=== PATIENT | female | born 2000 | race Caucasian/White ===

== ENCOUNTER 2018-05-05 14:06 | Emergency (ER) | payer MEDICAID ==
--- NOTE | 2018-05-05 15:21 | EDM.PDOC ---
ED HPI GENERAL MEDICAL PROBLEM - General Chief Complaint: General Stated Complaint: NEXPLANON IMPLANT HAS MOVED Time Seen by Provider: 05/05/18 15:10 Source of Information: Reports: Patient History Limitations: Reports: No Limitations - History of Present Illness INITIAL COMMENTS - FREE TEXT/NARRATIVE: 17 yo female has had a Nexplanon in her L arm for about a year placed by a facility in [place] where she used to live. They apparently told her that if it moves at all it needs to be taken out right away. She thinks it has moved distally about an inch or so. This is otherwise not associated with any sx's that she is experiencing. Comes here today hoping we will remove it. 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: Reports: Other (see below) (none) - Related Data Allergies Allergy/AdvReac Type Severity Reaction Status Date / Time No Known Allergies Allergy Verified 05/05/18 14:24 Home Meds: Home Meds NK [No Known Home Meds] 05/05/18 [History] Past Medical History - Past Surgical History Head Surgeries/Procedures: Reports: None Social & Family History - Family History Family Medical History: Noncontributory - Tobacco Use Smoking Status *Q: Never Smoker - Caffeine Use Caffeine Use: Reports: Soda - Recreational Drug Use Recreational Drug Use: Yes Recreational Drug Type: Reports: Marijuana/Hashish Recreational Drug Use Frequency: Rarely ED ROS GENERAL - Review of Systems Review Of Systems: See Below Constitutional: Reports: No Symptoms HEENT: Reports: No Symptoms Respiratory: Reports: No Symptoms Cardiovascular: Reports: No Symptoms Endocrine: Reports: No Symptoms GI/Abdominal: Reports: No Symptoms : Reports: No Symptoms Musculoskeletal: Reports: No Symptoms Skin: Reports: No Symptoms Neurological: Reports: No Symptoms Psychiatric: Reports: No Symptoms Hematologic/Lymphatic: Reports: No Symptoms ED EXAM, GENERAL - Physical Exam Exam: See Below Exam Limited By: No Limitations General Appearance: Alert, WD/WN, No Apparent Distress Eye Exam: Bilateral Eye: Normal Inspection Ears: Normal External Exam, Normal Canal, Hearing Grossly Normal Ear Exam: Bilateral Ear: Auricle Normal, Canal Normal Nose: Normal Inspection, No Blood Throat/Mouth: Normal Inspection, Normal Lips, Normal Voice, No Airway Compromise Head: Atraumatic, Normocephalic Neck: Normal Inspection Respiratory/Chest: No Respiratory Distress, Lungs Clear, Normal Breath Sounds, No Accessory Muscle Use Cardiovascular: Regular Rate, Rhythm, No Edema Extremities: Normal Inspection, Other (Nexplanon palpable L medial arm, no redness or pain with palpation. ) Neurological: Alert, Oriented, CN II-XII Intact, Normal Cognition, No Motor/ Sensory Deficits Psychiatric: Normal Affect, Normal Mood Skin Exam: Warm, Dry, Intact, Normal Color, No Rash Course - Vital Signs Last Recorded V/S: Last Vital Signs Temp 35.6 C 05/05/18 14:27 Pulse 74 05/05/18 14:27 Resp 14 05/05/18 14:27 BP 145/70 H 05/05/18 14:27 Pulse Ox 100 05/05/18 14:27 Departure - Departure Time of Disposition: 15:20 Disposition: Home, Self-Care 01 Condition: Good Clinical Impression: Nexplanon in place Clinical Impression: (Ruled Out): Encounter for surveillance of Nexplanon subdermal contraceptive - Discharge Information *PRESCRIPTION DRUG MONITORING PROGRAM REVIEWED*: No *COPY OF PRESCRIPTION DRUG MONITORING REPORT IN PATIENT EVELIA: No Referrals: Parisa Stark MD [Primary Care Provider] - Additional Instructions: Follow up with your provider regarding removal of your contraceptive device.
== END 2018-05-05 15:32 | disposition home or self-care (01) ==
LOC: JP.ED 14:06
DX: Z30.46 Encounter for surveillance of implantable subdermal contraceptive (principal)
CPT/HCPCS: 99281; 99283